=== PATIENT | female | born 1945 | race Caucasian/White ===

== ENCOUNTER → 2017-10-18 | Outpatient (CLI) | payer OTHER | END | disposition home or self-care (01) | LOC: CFH 09:48 | PROVIDERS: ATTEND Family Medicine | DX: Z12.31 Encounter for screening mammogram for malignant neoplasm of breast (principal); Z13.820 Encounter for screening for osteoporosis; N64.89 Other specified disorders of breast; M85.88 Other specified disorders of bone density and structure, other site; N95.9 Unspecified menopausal and perimenopausal disorder; Z80.3 Family history of malignant neoplasm of breast | CPT/HCPCS: 77080; 77067 ==

== ENCOUNTER → 2017-11-01 | Outpatient (CLI) | payer OTHER | END | disposition home or self-care (01) | LOC: CFH 11:43 | PROVIDERS: ATTEND Family Medicine | DX: N64.89 Other specified disorders of breast (principal); R92.2 Inconclusive mammogram; Z80.3 Family history of malignant neoplasm of breast | CPT/HCPCS: 77065 ==

== ENCOUNTER 2019-01-01 14:52 | Inpatient (IN) | payer MEDICARE, OTHER ==
[~2019-01-01] VITALS: Ht 162.6 cm; Wt 59.5 kg
[2019-01-01 17:55] VITALS: BP 137/79
[2019-01-01] MEDS ORDERED: TRIA50CA PO (19:29)
[2019-01-01] MEDS ORDERED: TEMAZEPAM 15 MG CAPSULE PO PRN (19:30)
[2019-01-01] MEDS ORDERED: DOCUSATE 100 MG CAPSULE PO PRN (19:30)
[2019-01-01] MEDS ORDERED: PLEASE ENTER ALLERGIES MC SCH (19:30)
[2019-01-01] MEDS ORDERED: PLEASE ENTER HEIGHT AND WEIGHT MC SCH (19:30)
[2019-01-01] MEDS ORDERED: ONDANSETRON ODT 4 MG PO PRN (19:30)
[2019-01-01] MEDS ORDERED: hydrALAzine 20 MG/ML, 1ML IVPush PRN (19:30)
[2019-01-01] MEDS ORDERED: ACETAMINOPHEN 325 MG TABLET PO PRN (19:30)
[2019-01-01] MEDS ORDERED: GABAPENTIN 300 MG CAPSULE PO PRN (19:30)
[2019-01-01] MEDS ORDERED: ATOR40TA78 PO (19:34)
[2019-01-01 20:14] VITALS: BP 137/72
[2019-01-01] MEDS: ENOXAPARIN 40 MG/0.4 ML SQ SCH (21:33)
[2019-01-01] MEDS: INSULIN LISPRO 100 UNITS/ML, PEN SQ-INSULIN SCH (21:34)
[2019-01-02] MEDS ORDERED: OMNIPAQUE 350 MG/ML, 100ML BOTTLE ONE (00:39)
[2019-01-02 00:57] VITALS: BP 122/72
[2019-01-02 05:56] LABS: BASOPHILS # (AUTO) 0.01 x10^3/uL (0-0.1); BASOPHILS % (AUTO) 0 % (0-1); EOSINOPHILS % (AUTO) 0 % (1-7); LYMPHOCYTES % (AUTO) 15 % (22-44); MD NO; MEAN CORPUSCULAR HEMOGLOBIN 30.1 pg (27.0-34.8); MEAN CORPUSCULAR HGB CONC 32.9 g/dL (32.4-35.8); MEAN CORPUSCULAR VOLUME 91.3 fL (80-100); MEAN PLATELET VOLUME 9.5 fL (7.4-10.4); MONOCYTES % (AUTO) 7 % (2-9); NEUTROPHILS # (AUTO) 4.82 x10^3/uL (1.8-6.8); NEUTROPHILS % (AUTO) 79 % (42-75); PLATELET COUNT 268 x10^3/uL (130-400); RED BLOOD COUNT 4.95 x10^6/uL (3.82-5.3); RED CELL DISTRIBUTION WIDTH 13.9 % (9.6-15.2)
[2019-01-02 06:16] LABS: ANION GAP 8 mmol/L (5-15); CHLORIDE 99 mmol/L (98-107)
[2019-01-02 06:20] LABS: ALANINE AMINOTRANSFERASE 24 U/L (12-78); ALKALINE PHOSPHATASE 79 U/L (45-117); BILIRUBIN,TOTAL 0.4 mg/dL (0.2-1.0); CREATININE 0.53 mg/dL (0.55-1.02); TOTAL PROTEIN 7.2 g/dL (6.4-8.2)
[2019-01-02] MEDS: INSULIN LISPRO 100 UNITS/ML, PEN SQ-INSULIN SCH ×4 (07:00→20:22)
[2019-01-02] MEDS ORDERED: FUROSEMIDE 20 MG/2 ML IV SCH (07:30)
[2019-01-02 07:45] VITALS: BP 130/77
[2019-01-02] MEDS: CEFTRIAXONE PMX 1GM/50ML 50 ML IV SCH (09:02)
[2019-01-02] MEDS: GUAIFENESIN ER 600 MG TABLET PO SCH ×2 (09:02→20:22)
[2019-01-02] MEDS: AZITHROMYCIN 500 MG in SODIUM CHLORIDE 0.9% 250 ML IV SCH (09:53)
[2019-01-02 12:05] VITALS: BP 124/74
[2019-01-02 15:57] LABS: HEMOGLOBIN A1C 6.1 % (4.2-6.3)
[2019-01-02 19:59] VITALS: BP 131/82
[2019-01-02] MEDS ORDERED: ATORVASTATIN 40 MG TABLET PO SCH (21:00)
[2019-01-02] MEDS: ENOXAPARIN 40 MG/0.4 ML SQ SCH (21:54)
[2019-01-03 00:23] VITALS: BP 116/78
[2019-01-03 06:11] LABS: ANION GAP 6 mmol/L (5-15); CALCIUM 8.8 mg/dL (8.5-10.1); CHLORIDE 103 mmol/L (98-107); CREATININE 0.56 mg/dL (0.55-1.02)
[2019-01-03] MEDS: INSULIN LISPRO 100 UNITS/ML, PEN SQ-INSULIN SCH ×2 (07:00→12:41)
[2019-01-03 07:45] VITALS: BP 120/63
[2019-01-03] MEDS ORDERED: POTASSIUM CHLORIDE 20 MEQ TAB.ER.PRT PO ONE (08:00)
[2019-01-03] MEDS: GUAIFENESIN ER 600 MG TABLET PO SCH (09:15)
[2019-01-03] MEDS: CEFTRIAXONE PMX 1GM/50ML 50 ML IV SCH (09:15)
[2019-01-03] MEDS: AZITHROMYCIN 500 MG in SODIUM CHLORIDE 0.9% 250 ML IV SCH (10:37)
[2019-01-03 13:37] VITALS: BP 107/68
[2019-01-03] MEDS ORDERED: METH4TAB2 PO (14:16)
[2019-01-03] MEDS ORDERED: CEFD300C37 PO (14:16)
[2019-01-03] MEDS ORDERED: AZIT500T5 PO (14:16)
== END 2019-01-03 15:46 | disposition home or self-care (01) | DRG 193 ==
LOC: 4EST 17:40 → DCLOUNGE 01-03 15:33
PROVIDERS: ADMIT Internal Medicine; ATTEND Internal Medicine
DX: J18.1 Lobar pneumonia, unspecified organism (principal); J96.21 Acute and chronic respiratory failure with hypoxia; J44.1 Chronic obstructive pulmonary disease with (acute) exacerbation; J44.0 Chronic obstructive pulmonary disease with (acute) lower respiratory infection; R73.9 Hyperglycemia, unspecified; E78.5 Hyperlipidemia, unspecified; I08.3 Combined rheumatic disorders of mitral, aortic and tricuspid valves; I10 Essential (primary) hypertension; Z80.52 Family history of malignant neoplasm of bladder; Z82.49 Family history of ischemic heart disease and other diseases of the circulatory system; Z87.891 Personal history of nicotine dependence; Z99.81 Dependence on supplemental oxygen
CPT/HCPCS: 36415; 71275; 80048; 80053; 82962; 83036; 84145; 85025; 93306; G0378; J0456; J0696; J1650; Q9967; J1815; J1940; J7050; J7512

== ENCOUNTER → 2019-02-05 | Outpatient (CLI) | payer MEDICARE ==
[~2019-02-05] MED LIST: ATOR40TA78 PO; AZIT500T5 PO; CEFD300C37 PO; METH4TAB2 PO; TRIA50CA PO
== END | disposition home or self-care (01) ==
LOC: CFH 13:25
PROVIDERS: ATTEND Family Medicine
DX: R92.2 Inconclusive mammogram (principal)
CPT/HCPCS: 76642; 77065

== ENCOUNTER 2019-02-07 09:40 | Outpatient (CLI) | payer MEDICARE ==
[2019-02-07] MEDS ORDERED: SODIUM BICARBONATE 4.2%, 5ML ONE (09:45)
[2019-02-07] MEDS ORDERED: LIDOCAINE 1%-EPI 1:100K, 20ML ONE (09:45)
[2019-02-07] MEDS ORDERED: LIDOCAINE 1%, 20ML ONE (09:45)
== END 2019-02-07 23:59 | disposition home or self-care (01) ==
LOC: CFH 09:40
PROVIDERS: ATTEND Family Medicine
DX: C50.212 Malignant neoplasm of upper-inner quadrant of left female breast (principal); Z17.1 Estrogen receptor negative status [ER-]
CPT/HCPCS: 19083; 77065; 88305; 88360; J3490; 19285

== ENCOUNTER 2019-02-20 12:46 | Outpatient (CLI) | payer MEDICARE ==
[2019-02-20] MEDS ORDERED: GADOBUTROL 7.5 MMOL/7.5 ML VIAL ONE (13:43)
== END 2019-02-20 23:59 | disposition home or self-care (01) ==
LOC: CFH 12:46
PROVIDERS: ATTEND Family Medicine
DX: C50.212 Malignant neoplasm of upper-inner quadrant of left female breast (principal)
CPT/HCPCS: A9585; C8908; C8937

== ENCOUNTER → 2019-10-15 | Outpatient (CLI) | payer MEDICARE ==
[~2019-10-15] MED LIST changes: +ATOR10TA PO; +AZIT500T10 PO; -AZIT500T5 PO; +HYDR-3240 PO; +TRIA1TAB3 PO
== END | disposition home or self-care (01) ==
LOC: CFH 12:13
PROVIDERS: ATTEND Surgery
DX: R92.8 Other abnormal and inconclusive findings on diagnostic imaging of breast (principal); Z90.13 Acquired absence of bilateral breasts and nipples; Z85.3 Personal history of malignant neoplasm of breast
CPT/HCPCS: 76642

== ENCOUNTER 2019-11-03 05:56 | Day surgery (SDC) | payer MEDICARE ==
[~2019-11-03] VITALS: Ht 162.6 cm; Wt 56.4 kg
[~2019-11-03 05:56] MED LIST changes: +AMLO-150 PO; +CALC1CAP8 PO; +GLUC-121 PO; +MAGNESIUM PO; +POTASSIUM PO
[2019-11-03] MEDS ORDERED: LACTATED RINGERS 1,000 ML IV SCH (06:10)
[2019-11-03] MEDS ORDERED: BUPIVACAINE/PF-EPI 0.5% 1:200K ONE (06:25)
[2019-11-03] MEDS ORDERED: MIDAZOLAM 1 MG/ML, 2ML ONE (06:27)
[2019-11-03] MEDS ORDERED: FENTANYL PF 100 MCG/2ML ONE (06:27)
[2019-11-03 06:28] VITALS: BP 150/77
[2019-11-03] MEDS ORDERED: OXYcodone 5 MG/5 ML ORAL.SOL UDC PO PRN (07:00)
[2019-11-03] MEDS ORDERED: ONDANSETRON 2MG/ML, 2ML IV PRN (07:00)
[2019-11-03] MEDS ORDERED: HYDROmorphone 2 MG/ML, 1ML IVPush PRN (07:00)
[2019-11-03] MEDS ORDERED: MEPERIDINE/PF 25MG/ML,1ML IVPush PRN (07:00)
[2019-11-03] MEDS ORDERED: ACETAMINOPHEN 325 MG TABLET PO PRN (07:00)
[2019-11-03] MEDS ORDERED: FENTANYL PF 100 MCG/2ML IV PRN (07:00)
[2019-11-03] MEDS ORDERED: KETOROLAC 30 MG/1 ML IV PRN (07:00)
[2019-11-03] MEDS ORDERED: LORazepam 2 MG/ML, 1ML IVPush PRN (07:00)
[2019-11-03 07:08] LABS: ALANINE AMINOTRANSFERASE 22 U/L (12-78); ALBUMIN 3.7 g/dL (3.4-5.0); ANION GAP 8 mmol/L (5-15); CALCIUM 9.1 mg/dL (8.5-10.1); CHLORIDE 105 mmol/L (98-107)
[2019-11-03] MEDS ORDERED: LIDOCAINE-MPF 2% ,5ML ONE (07:09)
[2019-11-03] MEDS ORDERED: BUPIVACAINE/PF-EPI 0.5% 1:200K INFIL ONE (07:09)
[2019-11-03] MEDS ORDERED: ONDANSETRON 2MG/ML, 2ML ONE (07:09)
[2019-11-03] MEDS ORDERED: PROPOFOL 10 MG/ML, 20ML ONE (07:09)
[2019-11-03] MEDS ORDERED: SUCCINYLCHOLINE 20 MG/ML, 10ML ONE (07:09)
[2019-11-03] MEDS ORDERED: CEFAZOLIN 1,000 MG ONE (07:09)
[2019-11-03] MEDS ORDERED: ROCURONIUM 10MG/ML,5ML ONE (07:09)
[2019-11-03 07:10] LABS: ALKALINE PHOSPHATASE 72 U/L (45-117); TOTAL PROTEIN 7.3 g/dL (6.4-8.2)
== END 2019-11-03 09:20 | disposition home or self-care (01) ==
LOC: OUT 05:56
PROVIDERS: ATTEND Surgery
DX: C50.212 Malignant neoplasm of upper-inner quadrant of left female breast (principal); N60.32 Fibrosclerosis of left breast; J44.9 Chronic obstructive pulmonary disease, unspecified; I10 Essential (primary) hypertension; E78.5 Hyperlipidemia, unspecified; Z79.899 Other long term (current) drug therapy; Z87.891 Personal history of nicotine dependence; Z88.8 Allergy status to other drugs, medicaments and biological substances; Z98.890 Other specified postprocedural states; Z80.3 Family history of malignant neoplasm of breast; Z82.49 Family history of ischemic heart disease and other diseases of the circulatory system
CPT/HCPCS: 19301; 36415; 80053; 88307; 93005; J0330; J0690; J2250; J2405; J2704; J3010; J7120

== ENCOUNTER 2019-11-17 16:26 | Emergency (ER) | payer MEDICARE ==
[~2019-11-17] VITALS: Ht 162.6 cm; Wt 57.2 kg
--- NOTE | 2019-11-17 16:51 | NUR ---
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 PT GIVEN GOWN TO CHANGE INTO. ERNIE
--- NOTE | 2019-11-17 17:05 | NUR ---
assumed care of pt. pt presents reporting that she was contacted by Dr. Glass's office to notify her that her liver enzmes were elevated and she neede to go to he ER fo evaluation. pt has no physical c/o. denies abd pain,no jaundice, no itching, no nausea. pt is A&O x4. no familoy at bedside. pt reports that she drinks wine gladys day
--- NOTE | 2019-11-17 17:58 | NUR ---
no changes. pt resting in position of comfort
[2019-11-17 17:59] LABS: ALANINE AMINOTRANSFERASE 460 U/L (12-78); ALBUMIN 3.8 g/dL (3.4-5.0); ANION GAP 6 mmol/L (5-15); CALCIUM 9.3 mg/dL (8.5-10.1); CHLORIDE 104 mmol/L (98-107)
[2019-11-17 18:02] LABS: ALKALINE PHOSPHATASE 304 U/L (45-117); BILIRUBIN,TOTAL 0.9 mg/dL (0.2-1.0); CREATININE 0.63 mg/dL (0.55-1.02); TOTAL PROTEIN 7.6 g/dL (6.4-8.2)
--- NOTE | 2019-11-17 18:26 | NUR ---
pt to have CT scan. updated on POC. warm blankets given. Dr. Trujillo at bedside for recheck
[2019-11-17 18:37] LABS: BASOPHILS # (AUTO) 0.04 x10^3/uL (0-0.1); BASOPHILS % (AUTO) 1 % (0-1); EOSINOPHILS # (AUTO) 0.32 x10^3/uL (0-0.4); EOSINOPHILS % (AUTO) 4 % (1-7); LYMPHOCYTES # (AUTO) 2.24 x10^3/uL (1-3.4); LYMPHOCYTES % (AUTO) 30 % (22-44); MD SCAN; MEAN CORPUSCULAR HEMOGLOBIN 29.5 pg (27.0-34.8); MEAN CORPUSCULAR HGB CONC 33.5 g/dL (32.4-35.8); MEAN CORPUSCULAR VOLUME 87.8 fL (80-100); MONOCYTES # (AUTO) 0.66 x10^3/uL (0.2-0.8); MONOCYTES % (AUTO) 9 % (2-9); NEUTROPHILS # (AUTO) 4.32 x10^3/uL (1.8-6.8); NEUTROPHILS % (AUTO) 57 % (42-75); PLATELET COUNT 246 x10^3/uL (130-400); RED BLOOD COUNT 5.18 x10^6/uL (3.82-5.3)
--- NOTE | 2019-11-17 18:54 | NUR ---
pt to CT scan via [facility]
[2019-11-17] MEDS ORDERED: OMNIPAQUE 350 MG/ML, 100ML BOTTLE ONE (19:17)
--- NOTE | 2019-11-17 19:26 | NUR ---
pt returned from CT. no new c/o. awaiting test results
[2019-11-17 20:23] VITALS: BP 138/59
== END 2019-11-17 20:37 | disposition home or self-care (01) ==
LOC: ED 18:35
DX: R74.9 Abnormal serum enzyme level, unspecified (principal); J44.9 Chronic obstructive pulmonary disease, unspecified; I10 Essential (primary) hypertension; Z85.3 Personal history of malignant neoplasm of breast
CPT/HCPCS: 36415; 71045; 74177; 80053; 83690; 85025; 99285; Q9967

== ENCOUNTER → 2019-11-20 | Outpatient (CLI) | payer MEDICARE | END | disposition home or self-care (01) | LOC: ROC 07:21 | PROVIDERS: ATTEND Radiology Radiation Oncology | DX: C50.912 Malignant neoplasm of unspecified site of left female breast (principal); C50.911 Malignant neoplasm of unspecified site of right female breast | CPT/HCPCS: 99214; G0463 ==

== ENCOUNTER 2020-06-08 07:25 | Outpatient (CLI) | payer MEDICARE | END 2020-06-08 23:59 | disposition home or self-care (01) | LOC: ROC 07:25 | PROVIDERS: ATTEND Radiology Radiation Oncology | DX: C50.212 Malignant neoplasm of upper-inner quadrant of left female breast (principal); I10 Essential (primary) hypertension; E78.00 Pure hypercholesterolemia, unspecified; Z90.13 Acquired absence of bilateral breasts and nipples | CPT/HCPCS: 99212; G0463 ==